=== PATIENT | male | born 1945 | race Caucasian/White ===

== ENCOUNTER 2021-04-09 06:51 | Observation (INO) ==
--- NOTE | 2021-04-09 08:29 | History & Physical Bridge Note ---
Date of Service April 09, 2021 History & Physical Bridge Note I have examined the patient, reviewed the History & Physical and in the interval since the performance of the History & Physical I have noted the following changes of clinical significance: no changes noted
--- NOTE | 2021-04-09 08:30 | Pre Anesthesia Assessment ---
Date of Service April 09, 2021 Pre Sedation Assessment Vital Signs Temp Pulse Resp BP Pulse Ox 04/09/21 05:08 37.2 C 52 L 18 163/75 H 97 Cardiovascular RRR, no murmur, no edema Respiratory normal respiratory effort, lungs clear to auscultation Pre-Sedation Airway Assessment Smoking Status: Former smoker Hx Sleep Apnea: Yes Short, Thick Neck: Yes Thyromental Distance: > or= 3.5 Finger Breadths Oral Cavity: + WNL Mallampati Class: II ASA: ASA3 NPO Status Date of Last Intake of Fluids: 04/09/21 Date of Last Intake of Solid Food: 04/08/21 Procedure Planning Contraindications for Sedation: none Current Medications Reviewed: No Notes The planned sedation has been discussed with the patient. Informed Consent was obtained. I have identified the patient, determined the appropriateness of sedation and have assessed the patient immediately prior to the procedure. All medicine(s) and interventions are by my order.
[2021-04-09] MEDS ORDERED: fentaNYL citrate 100 MCG/2 ML VIAL ONE (08:31)
[2021-04-09] MEDS ORDERED: niCARdipine HCL INJ 2.5 MG/ML 10 ML AMP ONE (08:31)
[2021-04-09] MEDS ORDERED: HEPARIN (PORCINE) 1000 UNIT/ML 10 ML (CATH LAB USE ONLY) ONE ×2 (08:31→10:27)
[2021-04-09] MEDS ORDERED: MIDAZOLAM HCL 1 MG/ML 2ML VIAL ONE ×2 (08:32→10:34)
[2021-04-09] MEDS ORDERED: NITROGLYCERIN/D5W 100MCG/ML 20ML SYR ONE (08:32)
[2021-04-09] MEDS ORDERED: ADENOSINE IV SOLN 3 MG/ML 20 ML VIAL IV ONE (09:56)
--- NOTE | 2021-04-09 09:57 | Post Anesthesia Assessment ---
Date of Service April 09, 2021 Post Sedation Assessment Vital Signs Temp Pulse Resp BP Pulse Ox 04/09/21 05:08 37.2 C 52 L 18 163/75 H 97 Recovery Score Activity: Moves 4 extremities Respiration: Deep Breath/Cough Circulation: +/-20% PreAnes Value Consciousness: Arouseable (by name) Oxygen Saturation: > 92% On Room Air Discharge Sedation Level of Care: Phase I Post Sedation Plan On clinical assessment, the patient appears to have tolerated the sedation without complications. Patient is recovering as anticipated. Patient will continue to be monitored by nursing and may be discharged when sedation discharge criteria are met per below protocol. Upon Completions of procedure up to 15 minutes continue every 5 minute vital signs and the P.A.R. score; then discharge to a Phase I or Fast Track to Phase II per the following guidelines: * Discharge Patient to appropriate Phase II area if PAR is 8 or greater or return to pre- procedure baseline. The post - procedure orders will be as directed. * If PAR score is less than 8 or not return to pre-procedure baseline then patient will follow Phase I monitoring till PAR is reached for Phase II. The Phase I may be done in procedure room or may call to secure a Phase I area. * If naloxone or flumazenil are used for reversal, hold in Phase I for continued monitoring from when last reversal dose was given for a minimum of 60 minutes or longer pending the nurse and/or physician discretion of patient condition before discharge to Phase II. Please call the Sedation Physician to re-evaluate and complete post-note for discharge to Phase II area. Do NOT discharge from procedure sedation or Phase 1 until post- sedation evaluation note is complete by procedure /sedation MD Sedation Discharge Instructions to be given to the patient at discharge to home.
--- NOTE | 2021-04-09 10:08 | Cardiac Catheterization ---
Cardiac Cath Procedure Full Procedure Date April 09, 2021 Pre-Procedure Diagnosis Pre-Procedure Diagnosis: Angina, Positive Stress Test and CAD AUC Score AUC Score: 7 Post-Procedure Diagnosis Post-Procedure Diagnosis: Severe CAD and Normal Intracardiac Pressures Procedure(s) Performed Procedure(s) Performed: Coronary Angiography and Left Heart Cath Grease Cup Filler Germán Ferrari DO Solar Sales Manager(s) Patricio RTR Estimated Blood Loss Estimated Blood Loss: 10cc Medication(s) Medication(s): Fentanyl, Heparin, Lidocaine 1%, Nicardipine, Nitroglycerin and Versed Summary of Findings Right dominant coronary anatomy. Short left main giving rise to left anterior descending artery and circumflex. The LAD demonstrates mild calcification proximally with a 40% stenosis followed by a 70% calcified stenosis in the early mid segment. The mid to distal LAD demonstrates diffuse luminal irregularities with stenosis ranging from 10-20%. The first diagonal branch vessel is large with a 40% proximal stenosis followed by diffuse luminal irregularities with stenosis ranging up to 30%. The second diagonal branch vessel is of moderate caliber with severe, 80% stenosis proximally. There is a third diagonal branch vessel that fills late via left to left collaterals. The left circumflex is a large nondominant vessel giving rise to obtuse marginal and posterior lateral branches. There is a 20% ostial left circumflex stenosis. The remainder of the vessel demonstrates diffuse luminal irregularities with stenosis ranging from 10-20%. The first obtuse marginal branch vessel is diminutive, 1 mm. The second obtuse marginal branch vessel is of moderate caliber and is free of significant obstructive disease. There are mild luminal irregularities of the mid segment with stenosis ranging up to 10%. Posterior lateral branch vessel is small and free of significant obstructive disease. The right coronary artery is a large dominant vessel giving rise to posterior descending artery and 2 large posterior lateral branch vessels. There is a long area of stenting extending from the proximal to mid segment. There is a 30% proximal stenosis prior to the stent. There is mild in-stent restenosis, 20%. Distal vessel demonstrates a 30% stenosis. The posterior descending artery is normal. The first posterior lateral branch vessel demonstrates mild luminal irregularities, 10%. The second posterior lateral branch vessel demonstrates mild luminal irregularities, 10%. Hemodynamics Rest Ao:: 130/72/106 Final Ao: 130/53/82 LV: 128/-1/8 Recommendations Recommendations: PCI without planned CABG Specimens Specimens: None Radiation Exposure (mGy) 1343 Contrast (mls) 80 Fluids (cc crystalloids) Fluids (cc crystalloids): 100 Nss Drains Drains: n/A Anesthesia Moderate sedation. Start 903. End 954. Sedation monitor: Damaris DIANA Procedural Complication(s) None Disposition minilab operator for PCI I attest to the content of the Intraoperative Record and any orders documented therein. Any exceptions are noted below. ACC Data: Director Enterprise Data Architecture Cardiac Status Clinical evaluation leading to the procedure CAD Presenation: Positive Stress Test and Unstable angina Anginal Classification: CCS II Heart Failure: No Cardiogenic Shock within 24 Hours: No Cardiac Arrest within 24 Hours: No Imaging Studies Past 6 Months: Yes Stress Studies Past 6 Months: Yes Stress Echocardiogram: Yes - Positive and Risk/Extent of Ischemia (High) Coronary Anatomy Left Main (% Stenosis): Normal LAD (% Stenosis): Proximal (40%), Mid (70%) and Distal (10-20% diffuse) D1 (% Stenosis): Proximal (40%) and Mid (10-30% diffuse) D2 (% Stenosis): Proximal (80%) D3 (% Stenosis): Proximal (occluded, fills via left to left collaterals) Circumflex (% Stenosis): Ostial (20%) and Mid (10-20% diffuse) OM1 (% Stenosis): Normal OM2 (% Stenosis): Mid (10% diffuse) L PL1 (% Stenosis): Normal RCA (% Stenosis): Proximal (Patent stent, 20% in-stent restenosis), Mid (Patent stent with 20% in-stent restenosis) and Distal (30%) R PDA (% Stenosis): Normal R PL1 (% Stenosis): Mid (10% diffuse) R PL2 (% Stenosis): Mid (10% diffuse) Diagnostic Physicians Name: Germán Ferrari DO Status: Elective Closure Device Percutaneous Entry Location: Radial Closure Device: Radial Band Recommendations: PCI without planned CABG Intraprocedure Events Significant Disection: No Perforation: No
[2021-04-09] MEDS ORDERED: CLOPIDOGREL BISULFATE 300 MG TAB ONE (11:15)
[2021-04-09] MEDS ORDERED: ACETAMINOPHEN 325 MG TAB PO PRN (11:34)
[2021-04-09] MEDS ORDERED: NITROGLYCERIN SL 0.4 MG/TAB TAB SL PRN (11:34)
[2021-04-09] MEDS ORDERED: ONDANSETRON INJ 2 MG/ML 2 ML VIAL IV PRN (11:34)
--- NOTE | 2021-04-09 11:34 | Post Anesthesia Assessment ---
Date of Service April 09, 2021 Post Sedation Assessment Vital Signs Temp Pulse Pulse Resp BP Pulse Ox 04/09/21 11:20 51 L 16 145/66 H 95 04/09/21 05:08 99.0 F 52 L 18 163/75 H 97 Recovery Score Activity: Moves 4 extremities Respiration: Deep Breath/Cough Circulation: +/-20% PreAnes Value Consciousness: Fully Awake Oxygen Saturation: > 92% On Room Air Post Anesthesia Score: 10 Discharge Sedation Level of Care: Fast Track Phase II Post Sedation Plan On clinical assessment, the patient appears to have tolerated the sedation without complications. Patient is recovering as anticipated. Patient will continue to be monitored by nursing and may be discharged when sedation discharge criteria are met per below protocol. Upon Completions of procedure up to 15 minutes continue every 5 minute vital signs and the P.A.R. score; then discharge to a Phase I or Fast Track to Phase II per the following guidelines: * Discharge Patient to appropriate Phase II area if PAR is 8 or greater or return to pre- procedure baseline. The post - procedure orders will be as directed. * If PAR score is less than 8 or not return to pre-procedure baseline then patient will follow Phase I monitoring till PAR is reached for Phase II. The Phase I may be done in procedure room or may call to secure a Phase I area. * If naloxone or flumazenil are used for reversal, hold in Phase I for continue d monitoring from when last reversal dose was given for a minimum of 60 minutes or longer pending the nurse and/or physician discretion of patient condition before discharge to Phase II. Please call the Sedation Physician to re-evaluate and complete post-note for discharge to Phase II area. Do NOT discharge from procedure sedation or Phase 1 until post- sedation evaluation note is complete by procedure /sedation MD Sedation Discharge Instructions to be given to the patient at discharge to home.
[2021-04-09] MEDS ORDERED: GLUCOSE 10 TABS/TUBE PO PRN (11:42)
[2021-04-09] MEDS ORDERED: GLUCAGON FOR INJ 1 MG VIAL SQ PRN (11:42)
[2021-04-09] MEDS ORDERED: CARBOHYDRATES FOR HYPOGLYCEMIA PO PRN (11:42)
[2021-04-09] MEDS ORDERED: GLUCOSE 40% GEL 15 GM TUBE PO PRN (11:42)
[2021-04-09] MEDS ORDERED: DEXTROSE 50% 50 ML SYRINGE IV PRN (11:42)
[2021-04-09] MEDS ORDERED: SODIUM CHLORIDE 0.9% 1000ML 1,000 ML IV SCH (11:45)
--- NOTE | 2021-04-09 11:59 | Consultation ---
Date of Consultation April 09, 2021 Assessment & Plan (1) CAD (coronary artery disease): Severe coronary artery disease Stable angina Had an Abnormal Outpatient Stress Test S/P cardiac catheterization with successful PCI Continue aspirin, clopidogrel, Lipitor, metoprolol Appreciate cardiology input Consider resting echo when appropriate Need to continue dual antiplatelet therapy for at least 6 months Needs cardiac rehab Needs follow-up with cardiology upon discharge Check lipid panel in AM DM Type II: well controlled Will hold oral diabetic meds Insulin therapy while hospitalized Hypothyroidism Continue levothyroxine Hypertension Continue amlodipine, lisinopril, metoprolol Dyslipidemia Continue statin 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 History of Present Illness Requesting Physician: Reason for Consultation: Post Cath medical management Attending Physician: Germán Ferrari, History of Present Illness Patient is a 76-year-old male with history of coronary artery disease, diabetes mellitus type 2, former tobacco use, dyslipidemia, hypertension, hypothyroidism and other medical problems was consulted for post cardiac catheterization medical management. Patient had an elective cardiac catheterization for an outpatient abnormal stress test as recommended by his primary clinical laboratory aide. On cardiac catheterization, patient was found to have 75% stenosis of proximal to mid LAD, 95% proximal small to medium caliber second diagonal and he had successful PCI of proximal to mid LAD with single drug-eluting stent. He also underwent angioplasty of proximal second diagonal with balloon. patient is doing well post operatively. Denies any chest pain, SOB, palpitations, orthopnea, PND, dizziness, cough, fever, chills, headache, nausea, vomiting, abdominal pain, diarrhea, dysuria, recent change in medications . Allergies Allergy/AdvReac Type Severity Reaction Status Date / Time No Known Allergies Allergy Verified 04/09/21 07:26 Home Medications Medication Instructions Recorded Confirmed Type allopurinol 200 mg PO DAILY 04/09/21 04/09/21 History amlodipine 10 mg PO DAILY 04/09/21 04/09/21 History ascorbic acid (vitamin C) [Vitamin 1,000 mg DAILY 04/09/21 04/09/21 History C] aspirin 325 mg PO DAILY 04/09/21 04/09/21 History atorvastatin 40 mg PO DAILY 04/09/21 04/09/21 History cyclobenzaprine [Flexeril] 10 mg PO TID PRN 04/09/21 04/09/21 History fluticasone propionate [Flonase] 2 spray INTRANASAL DAILY 04/09/21 04/09/21 History ibuprofen 200 mg PO Q4 PRN 04/09/21 04/09/21 History indapamide 1.25 mg PO QAM 04/09/21 04/09/21 History levothyroxine 175 mcg PO DAILY 04/09/21 04/09/21 History lisinopril 40 mg PO DAILY 04/09/21 04/09/21 History metformin 850 mg PO BID 04/09/21 04/09/21 History metoprolol succinate 25 mg PO DAILY 04/09/21 04/09/21 History multivitamin [Multi-Vitamin] 1 tab PO DAILY 04/09/21 04/09/21 History nitroglycerin See Rx Instructions .ROUTE 04/09/21 04/09/21 History .COMPLEX PRN Patient History Medical History DM II (diabetes mellitus, type II), controlled HTN (hypertension) with goal to be determined Hypothyroidism Family History Father Heart disease Mother Alzheimer disease Social History Smoking Status: Former smoker Do You Dip or Chew Tobacco: No; Hx Alcohol Use: Yes Alcohol type: hard liquor Hx Substance Use: No Preferred Language: Thai Communication Ability: Effective Bolt Sawyer Required: No Beliefs That Will Affect Care: None Current Living Situation: Spouse Feels Safe at Home: Yes Assistive Devices: None Review of Systems Review of Systems: All systems reviewed & are unremarkable except as noted in HPI & below Physical Exam Physical Exam: Physical Exam: Vitals signs as noted above General Appearance:Moderately built and nourished, no apparent distress Head: normocephalic, Atraumatic Eyes: normal inspection, EOMI, PERRL Neck: supple, Trachea midline Respiratory/Chest: Normal breath sounds, CTA, No accessory muscle use Cardiovascular: S1, S2, No murmur Abdomen/GI:Soft, Non tender, Bowel sounds present Extremities/Musculoskeletal:normal inspection, Trace edema Neurologic/Psych:AAOX3, grossly no focal neurological deficits Skin: normal color, warm Results & Data ([facility]) Vital Signs (Past 12 Hours) Vital Signs Temp Pulse Pulse Resp BP Pulse Ox 04/09/21 11:48 36.4 C L 54 L 20 156/64 H 93 04/09/21 11:35 56 L 16 141/62 H 95 04/09/21 11:20 51 L 16 145/66 H 95 04/09/21 05:08 37.2 C 52 L 18 163/75 H 97 Diagnostic Findings Cardiac Cath: Summary: 1. Severe single vessel coronary artery disease -75% (by IVUS) proximal to mid LAD (FFR 0.77). 95+% proximal small to medium caliber second diagonal 2. Successful PCI of proximal to mid LAD with single drug-eluting stent (3.0 x 33 mm Xience; postdilated with 3.5 NC). 3. Angioplasty of proximal second diagonal with 2.0 balloon Recommendations: To PCU for continued monitoring Loaded with clopidogrel 600 mg in Deputy Director Of Finance Continue dual-antiplatelet therapy for at least 6 months Consult cardiac Rehab
--- NOTE | 2021-04-09 12:07 | Cardiac Catheterization ---
[facility] Data: Dietitian Cardiac Status Clinical evaluation leading to the procedure CAD Presenation: Positive Stress Test Anginal Classification: CCS III Heart Failure: No Cardiogenic Shock within 24 Hours: No Cardiac Arrest within 24 Hours: No Imaging Studies Past 6 Months: Yes Stress Studies Past 6 Months: Yes Stress Echocardiogram: Yes - Positive and Risk/Extent of Ischemia (Intermediate) Diagnostic Physicians Name: Charly Donaldson MD Status: Elective Closure Device Percutaneous Entry Location: Radial Closure Device: Radial Band Recommendations: PCI without planned CABG PCI Indication: + Stress Test and Stable Angina Lesion Segment Name: proximal LAD Culprit Artery: Yes Stenosis Prior to Rx (%): 75 Chronic Total Occlusion: No IVUS: No FFR: No Previously Treated Lesion: No Lesion Complexity: High/C Lesion Length (mm): 25 Thrombus Present: No Bifurcation Lesion: Yes Guidewire Across Lesion: Stenosis Post-Procedure (%): 0 Post-Procedure SHIRA Flow: 3 Devices(s) Deployed: Yes Yes Intraprocedure Events Significant Disection: No Perforation: No Cardiac Cath Procedure Full Procedure Date April 09, 2021 Pre-Procedure Diagnosis Pre-Procedure Diagnosis: Angina, Positive Stress Test and CAD AUC Score AUC Score: 7 Post-Procedure Diagnosis Post-Procedure Diagnosis: Severe CAD and Successful PCI Procedure(s) Performed Procedure(s) Performed: Coronary Angiography, PTCA, Drug Eluting Stent, IVUS and Fractional Flow Huntley Hand Trimmer Charly Donaldson MD Information Technology Auditor(s) Patricio RTR Estimated Blood Loss Estimated Blood Loss: 20 Medication(s) Medication(s): Clopidogrel, Fentanyl, Heparin, Lidocaine 1%, Nicardipine, Nitroglycerin and Versed Summary of Findings Indication: Angina, abnormal stress test Access: 6 Fr right radial artery Catheters: EBU 3.5 guide Findings: For full details of patient's coronary angiography please see cath report dictated by Dr. Ferrari. Briefly, patient found to have intermediate proximal LAD disease as well as branch vessel disease involving D2. Decision to proceed with PCI. -- PCI -- Antithrombotic therapy: Heparin, clopidogrel Procedure: Left main cannulated with EBU 3.5 guide Crane Operator Cab 50 wire passed across lesion into distal LAD ACIST FFR catheter placed across proximal LAD lesion FFR 0.77 Decision to proceed with PCI of LAD Blanca IVUS catheter placed into mid LAD Pullback revealed severe diffuse disease from mid to proximal segment, moderate circumferential calcium proximally (MLA 3.3 mm, calculated stenosis 75%) Whisper wire placed into D2 Proximal D2 dilated with 2.0 balloon Proximal to mid LAD dilated with 2.5 balloon Dilated LAD lesion stented with 3.0 x 33 mm Xience drug-eluting stent Stent post-dilated with 3.5 noncompliant balloon IC vasodilators administered for spasm Repeat IVUS revealed well apposed, well-expanded stent with no apparent edge complications Post procedure SHIRA 3 flow, stent well expanded with minimal residual stenosis. SHIRA-3 flow and involved branches. Arterial Closure: TR band Summary: 1. Severe single vessel coronary artery disease -75% (by IVUS) proximal to mid LAD (FFR 0.77). 95+% proximal small to medium caliber second diagonal 2. Successful PCI of proximal to mid LAD with single drug-eluting stent (3.0 x 33 mm Xience; postdilated with 3.5 NC). 3. Angioplasty of proximal second diagonal with 2.0 balloon Recommendations: To PCU for continued monitoring Loaded with clopidogrel 600 mg in Dietitian Continue dual-antiplatelet therapy for at least 6 months Consult cardiac Rehab Hemodynamics Rest Ao:: 134/51/83 Final Ao: 108/43/69 LV: 128/8 Recommendations Recommendations: PCI without planned CABG Specimens Specimens: None Radiation Exposure (mGy) 4770 Contrast (mls) 220 Drains Drains: None Anesthesia Moderate sedation. Start 1000. End 1112. Sedation monitor: Damaris DIANA Procedural Complication(s) None Disposition PCU I attest to the content of the Intraoperative Record and any orders documented therein. Any exceptions are noted below. [facility] Card Cath Procedure Codes Cardiac Catheterization Procedure 1: Cardiovascular Cath Procedures: 69425 (Doppler) Pressure Wire Therapeutic Services & Ancillary Proc Procedure 1: Cardiovascular Tx and Anc Procedures: 80314 IV Ultrasound (Coronary or Graft) Moderate Sedation Procedure 1: Sedation/Anesthesia: 44663 Mod Sedation by the same physician; Ea [id number] Minutes Angioplasty Procedure 1: Cardiovascular Angioplasty Procedures: 28115 PTCA; ea addl branch of a major cor art RC LC LD Stenting Procedure 1: Cardiovascular Stent Procedures: 34131 Perc transcatheter placement of intracoronary stent(s), with ang PG Care Time/CCT Total # of Minutes Spent Total Time Spent with Patient: Total time spent is greater than 50% in coordination of care (as documented) at patient's floor/unit and/or counseling patient:
[2021-04-09] MEDS ORDERED: CYCLOBENZAPRINE HCL 10 MG TAB PO PRN (12:32)
--- NOTE | 2021-04-09 13:41 | Electrocardiogram Report ---
Test Reason : Blood Pressure : / mmHG Vent. Rate : 046 BPM Atrial Rate : 046 BPM P-R Int : 208 ms QRS Dur : 100 ms QT Int : 446 ms P-R-T Axes : 038 005 120 degrees QTc Int : 390 ms Sinus bradycardia Left ventricular hypertrophy with repolarization abnormality Abnormal ECG When compared with ECG of 04-MAY-1999 10:58, T wave inversion no longer evident in Inferior leads T wave inversion now evident in Lateral leads Confirmed by Anthony Wilson ([id number]) on 04/09/2021 1:41:01 PM Referred By: Germán Ferrari Confirmed By:Anthony Wilson
--- NOTE | 2021-04-09 15:28 | Electrocardiogram Report ---
Test Reason : Blood Pressure : / mmHG Vent. Rate : 050 BPM Atrial Rate : 050 BPM P-R Int : 202 ms QRS Dur : 094 ms QT Int : 432 ms P-R-T Axes : 045 026 092 degrees QTc Int : 393 ms Sinus bradycardia Nonspecific T wave abnormality Abnormal ECG When compared with ECG of 09-APR-2021 11:25, No significant change was found Confirmed by Anthony Wilson ([id number]) on 04/09/2021 3:28:45 PM Referred By: Germán Ferrari Confirmed By:Anthony Wilson
[2021-04-09] MEDS: INSULIN ASPART 100 UNITS/ML 3 ML PEN SC SCH ×2 (16:40→21:31)
--- NOTE | 2021-04-09 21:23 | XRay Report ---
XR chest 2V PA/lateral CLINICAL HISTORY: Hazy opacity overlying the right lung base and ARABELLA COMPARISON STUDY: No previous studies for comparison. FINDINGS: No pneumothorax. Minimal blunting of posterior left costophrenic angle could represent trace left pleural effusion. Mild atelectasis is seen at the left base. Cardiomediastinal silhouette is within normal limits in size. No significant pulmonary vascular congestion.. Aorta is calcified Osseous structures: Degenerative changes of the spine. IMPRESSION: 1. Minimal atelectasis at the left base and trace left pleural effusion. ACT 112: Negative or not required by law. The above report was generated using voice recognition software. It may contain grammatical, syntax o r spelling errors. Electronically signed by: Elizabeth Rebolledo DO 04/09/2021 9:22 PM
[2021-04-10 03:47] VITALS: TEMP 97.7; O2SAT 95
[2021-04-10 06:09] LABS: Basophils # (auto) 0.02 K/uL (0-0.2); Basophils % (auto) 0.4 %; Eosinophils # (auto) 0.09 K/uL (0-0.5); Eosinophils % (auto) 1.8 %; Hematocrit (blood only) 42.2 % (42-52); Hemoglobin 13.7 g/dL (14.0-18.0); Immature Granulocytes # (auto) 0.01 K/uL (0.00-0.02); Immature Granulocytes % (auto) 0.2 %; Lymphocytes # (auto) 1.06 K/uL (1.2-3.4); Lymphocytes % (auto) 20.7 %; Mean Corpuscular Hgb Conc 32.5 g/dL (32-36); Mean Corpuscular Volume 98.6 fL (80-100); Monocytes # (auto) 0.53 K/uL (0.11-0.59); Monocytes % (auto) 10.4 %; Neutrophils % (auto) 66.5 %; Platelet Count 211 K/uL (130-400); RDW Coefficient of Variation 13.8 % (11.5-14.5); RDW Standard Deviation 49.5 fL (36.4-46.3); Red Blood Count 4.28 M/uL (4.7-6.1); White Blood Count 5.11 K/uL (4.8-10.8)
[2021-04-10] MEDS ORDERED: LEVOTHYROXINE SODIUM 175 MCG TABLET PO SCH (06:30)
[2021-04-10 06:34] LABS: Estimated Average Glucose 123 mg/dl; Hemoglobin A1C 5.9 % (4.5-5.6)
[2021-04-10 06:40] LABS: Calcium 8.8 mg/dl (8.5-10.1); Creatinine Clr Calc Pharmacy 64.1 ml/min; Est GFR (African American) 72.8 ml/min; Est GFR (Non-African American) 62.8 ml/min; Magnesium 2.3 mg/dl (1.8-2.4); Potassium 4.1 mmol/L (3.5-5.1)
[2021-04-10 07:07] VITALS: BP 161/76
[2021-04-10] MEDS: INSULIN ASPART 100 UNITS/ML 3 ML PEN SC SCH (07:49)
--- NOTE | 2021-04-10 07:52 | Discharge Summary ---
Date of Service April 10, 2021 Admission HPI Per Admitting Provider 76-year-old male with history of coronary artery disease, diabetes mellitus type 2, former tobacco use, dyslipidemia, hypertension, hypothyroidism and other medical problems was consulted for post cardiac catheterization medical management. Patient had an elective cardiac catheterization for an outpatient abnormal stress test as recommended by his primary enterprise applications manager. On cardiac catheterization, patient was found to have 75% stenosis of proximal to mid LAD, 95% proximal small to medium caliber second diagonal and he had successful PCI of proximal to mid LAD with single drug-eluting stent. He also underwent a ngioplasty of proximal second diagonal with balloon. patient is doing well post operatively. Denies any chest pain, SOB, palpitations, orthopnea, PND, dizziness, cough, fever, chills, headache, nausea, vomiting, abdominal pain, diarrhea, dysuria, recent change in medications . Admission Exam Per Admitting Provider Physical Exam: Vitals signs as noted above General Appearance:Moderately built and nourished, no apparent distress Head: normocephalic, Atraumatic Eyes: normal inspection, EOMI, PERRL Neck: supple, Trachea midline Respiratory/Chest: Normal breath sounds, CTA, No accessory muscle use Cardiovascular: S1, S2, No murmur Abdomen/GI:Soft, Non tender, Bowel sounds present Extremities/Musculoskeletal:normal inspection, Trace edema Neurologic/Psych:AAOX3, grossly no focal neurological deficits Skin: normal color, warm Principal Diagnosis CAD (coronary artery disease): DM Type II: Hypothyroidism Hypertension Dyslipidemia Alcohol use Discharge Exam ROS-No Headache, No Visual Changes, No Nausea, No Vomiting, No Fever, No Chills, No Neck Pain or Stiffness, No Chest Pain, No Palpitations, No SOB, No VARGAS, No Cough, No Sputum, No Wheezing, No Abdominal Pain, No Diarrhea, No Hematemesis, No Hemoptysis, No Unexpected Weight Loss, No Flank pain, No Melena, No Hematochezia, No Frequency, No Urgency, No Burning, No Hematuria, No Rashes, No Diaphoresis. Appetite is Normal Physical Exam Gen-AAO x 3, NAD, Afebrile Head-NCAT, EOMI, PERRLA, Anicteric Sclera, No Posterior Pharyngeal Erythema Neck-Supple, No JVD, No Thyromegaly, No Masses, No LAD, No Bruits Lungs-Clear to Auscultation Bilaterally, No Rales, No Rhonchi, No Wheezing, No Crepitus Chest-No S4, +S1, +S2, No S3, No Murmurs, No Rubs, No Gallops, No Ectopy Abdomen-Soft, Bowel Sounds Present, Non Tender, Non Distended, No Hepatomegaly, No Splenomegaly, No Palpable Masses, No Rebound, No Rigidity, No Guarding Musculoskeletal-Full Range of Motion Bilaterally, No CVAT Extremities-No Cyanosis, No Clubbing, No Edema Nuero-Cranial Nerves II-XII grossly intact, Motor WNL, DTRs WNL, Strength WNL, Non Focal Psych-Normal Mood Discharge Data Allergies Allergy/AdvReac Type Severity Reaction Status Date / Time No Known Allergies Allergy Verified 04/09/21 07:26 Consultations 04/09/21 11:45 Consult Hospitalist Routine Procedures Performed Operation Date: 04/09/21 08:00 Actual Procedures p Cath, Left with Cors and Vent - Germán Ferrari DO s Cineradiography w/Routine Exam - DO alex Bach Fraction Flow [place] SGL Ves - Humphrey Donaldson MD s IVUS Coronary Single Vessel - Humphrey Donaldson MD s Drug Eluting Stent SGl Vessel - Humphrey Donaldson MD s Ultrasound Vascular Access - Germán Ferrari DO Ordered Studies 04/09/21 06:42 CL Cath Imgs for PACS use only Routine 04/09/21 11:00 CL IVUS Coronary Single Vessel Routine Current Diagnoses Atherosclerotic heart disease of [place] coronary artery without angina pectoris (04/09/21) Allergies No Known Allergies Allergy (Verified 04/09/21 07:26) Height/Weight/Isolation Height 5 ft 10 in Weight 94.2 kg Chemistry 04/10/21 05:39 Sodium 138 Potassium 4.1 Chloride 107 Carbon Dioxide 28 Anion Gap 3.0 BUN 17 Creatinine 1.13 Glucose 115 H Hospital Course (1) CAD (coronary artery disease): Severe coronary artery disease Stable angina Had an Abnormal Outpatient Stress Test S/P cardiac catheterization with successful PCI Continue aspirin, clopidogrel, Lipitor, metoprolol Need to continue dual antiplatelet therapy for at least 6 months Needs cardiac rehab Needs follow-up with cardiology upon discharge DM Type II: well controlled Hypothyroidism Continue levothyroxine Hypertension Continue amlodipine, lisinopril, metoprolol Dyslipidemia Continue statin Alcohol use Counseled to quit DVT Px: SCDs for now Code Status Full Code Disposition Discharge home today after seen by Cardio Total Time Total Time Spent Total Time Spent (In Minutes): 45 min Total Time Includes: Examination of the Patient, Discharge Planning, Medication Reconciliation and Communication With Other Providers Discharge Plan Discharge Items Patient Disposition: Home - Self-Care Reason For Visit: Positive Exercise Stress Test Discharge Diagnosis: CAD (coronary artery disease): DM Type II: Hypothyroidism Hypertension Dyslipidemia Alcohol use Condition on Discharge: Good Activity: Resume your previous activity Lifting: Gradually increase as tolerated Bathing: Keep incision dry Sexual Activity: When tolerated Exercise/Sports: Gradually increase as tolerated Driving/Machine Use: Resume 3 days after discharge Weightbearing: Full weightbearing Non-emergency contact: Primary Care Provider and Senior Consumer Insights Consultant Call non-emergency contact if: you have any medication questions Follow-up/Referrals: Germán Ferrari DO [Senior Consumer Insights Consultant] - Aryan Dowell MD [Primary Care Provider] - Diet: Carb Consistent or DM2 and Heart Healthy Addtl Attending Provider Instructions: Need cardiac rehab Pending Studies at Discharge: No Stand-Alone Forms: My [facility] rubberit, Smoking Cessation Medications and DC Order Prescriptions: New clopidogrel 75 mg Tablet 75 mg PO QAM Qty: 30 RF: 0 nitroglycerin [Nitrostat] 0.4 mg Tablet, Sublingual 0.4 mg sublingual PRN PRN (Reason: chest pain) Qty: 30 RF: 0 acetaminophen 325 mg Tablet 650 mg PO Q4H PRN (Reason: fever or pain) Qty: 90 RF: 0 aspirin 81 mg Tablet,Delayed Release (Dr/Ec) 81 mg PO QAM Qty: 30 RF: 0 Continued multivitamin [Multi-Vitamin] Tablet 1 tab PO DAILY RF: 0 cyclobenzaprine [Flexeril] 10 mg Tablet 10 mg PO TID PRN (Reason: Muscle Spasm) RF: 0 atorvastatin 40 mg Tablet 40 mg PO DAILY RF: 0 allopurinol 100 mg Tablet 200 mg PO DAILY RF: 0 amlodipine 10 mg Tablet 10 mg PO DAILY RF: 0 indapamide 1.25 mg Tablet 1.25 mg PO QAM RF: 0 ibuprofen 200 mg Tablet 200 mg PO Q4 PRN (Reason: Pain) RF: 0 nitroglycerin 0.4 mg Tablet, Sublingual See Rx Instructions .ROUTE .COMPLEX PRN (Reason: Chest Pain) RF: 0 metoprolol succinate 25 mg Tablet Extended Release 24 Hr 25 mg PO DAILY RF: 0 Vitamin C 1,000 mg Tablet,Chewable 1,000 mg DAILY RF: 0 lisinopril 40 mg Tablet 40 mg PO DAILY RF: 0 fluticasone propionate [Flonase] 50 mcg/actuation [place],Suspension 2 spray INTRANASAL DAILY RF: 0 levothyroxine 175 mcg Capsule 175 mcg PO DAILY RF: 0 metformin 850 mg Tablet 850 mg PO BID Qty: 0 RF: 0 Discontinued aspirin 325 mg Tablet 325 mg PO DAILY RF: 0 Discharge Orders: Discharge Order (Routine); Ordered 04/10/21 Ordered By: Ashwin Ogden Admission Data Admit Date/Time: 04/09/21 10:40 Attending Provider: Ashwin Ogden Admit Provider: Germán Ferrari Primary Care Provider: Aryan Dowell Other Providers: Krystina Alegria
[2021-04-10] MEDS ORDERED: FLUTICASONE PROPIONATE NA SPR 16 GM BTL SCH (09:00)
[2021-04-10] MEDS ORDERED: METOPROLOL SUCC 25MG EXT REL TAB PO SCH (09:00)
[2021-04-10] MEDS ORDERED: ATORVASTATIN 40 MG TAB PO SCH (09:00)
[2021-04-10] MEDS ORDERED: CLOPIDOGREL BISULFATE 75 MG TAB PO SCH (09:00)
[2021-04-10] MEDS ORDERED: INDAPAMIDE 1.25 MG TAB PO SCH (09:00)
[2021-04-10] MEDS ORDERED: amLODIPine BESYLATE 5 MG TAB PO SCH (09:00)
[2021-04-10] MEDS ORDERED: lisinopril 40 MG TAB PO SCH (09:00)
[2021-04-10] MEDS ORDERED: MULTIVITAMIN TAB PO SCH (09:00)
[2021-04-10] MEDS ORDERED: ASPIRIN 81 MG ECTAB PO SCH (09:00)
[2021-04-10 09:20] VITALS: PULSE 51
--- NOTE | 2021-04-10 09:50 | Cardiology Progress Note ---
Date of Service April 10, 2021 Assessment & Plan (1) CAD (coronary artery disease): Patient presented with increasing angina pectoris and underwent diagnostic cardiac catheterization. Study demonstrated patent stents in the right coronary distribution. Significant disease as below noted in the left anterior descending with subsequent coronary invention 1. Severe single vessel coronary artery disease -75% (by IVUS) proximal to mid LAD (FFR 0.77). 95+% proximal small to medium caliber second diagonal 2. Successful PCI of proximal to mid LAD with single drug-eluting stent (3.0 x 33 mm Xience; postdilated with 3.5 NC). 3. Angioplasty of proximal second diagonal with 2.0 balloon Patient recovering nicely post procedure. Plan discharge today with dual antiplatelet minimum 6 months. Patient is scheduled to see [facility] cardiology on 04/23/2021 (2) HTN (hypertension) with goal to be determined: Continue prehospital medication (3) DM II (diabetes mellitus, type II), controlled: Resume Metformin on 04/12/2021 Admission and Anticipated Discharge Date Admission Date: April 09, 2021 Subjective Patient was seen and examined, chart, medications, telemetry reviewed. No difficulties overnight. No arrhythmias on telemetry No bleeding issues right radial access site healing well Review of Systems Review of Systems: All systems reviewed & are unremarkable except as noted in HPI & below Physical Exam Constitutional: WD/WN, vitals as above Eyes: PERRL, conjunctivae normal, anicteric sclerae ENMT: external ear and nose normal, oropharynx normal Neck: trachea midline, no thyromegaly Respiratory: normal respiratory effort, lungs clear to auscultation Cardiovascular: Rate/Rhythm: regular rate and regular rhythm Heart Sounds: normal S1 and normal S2; no gallop and no murmur Palpation: normal PMI Vessels: normal carotid upstroke and radial pulses present; no JVD and no carotid bruit Extremities: no edema Gastrointestinal (Abdomen): normal bowel sounds, soft, nontender, no hepatosplenomegaly Musculoskeletal: no cyanosis or clubbing, extremities motor strength 5/5 Skin: no rashes, warm and dry Neurologic: PERRL, EOMI, accommodation nl, no face palsy, no dysarthria Psychiatric: A+Ox3, euthymic affect Results & Data ([facility]) Vital Signs (Past 12 Hours) Vital Signs Temp Pulse Pulse Pulse Resp BP Pulse Ox 04/10/21 09:16 36.5 C 54 L 51 L 17 161/76 H 95 04/10/21 07:43 52 L 04/10/21 07:06 36.5 C 51 L 17 161/76 H 95 04/10/21 03:46 36.5 C 55 L 18 166/77 H 95 04/10/21 00:05 53 L 04/09/21 22:56 36.6 C 54 L 19 154/74 H 93 Laboratory Results Laboratory Results - last 24 hr 04/09/21 04/09/21 04/09/21 10:24 10:48 11:08 WBC RBC Hgb Hct MCV MCH MCHC RDW Std Deviation RDW Coeff of Billie Plt Count MPV Immature Gran % (Auto) Neut % (Auto) Lymph % (Auto) Mobile % (Auto) Eos % (Auto) Baso % (Auto) Neut # (Auto) Lymph # (Auto) Mobile # (Auto) Eos # (Auto) Baso # (Auto) Immature Gran # (Auto) Activ Coag Time Kaolin 197 H 241 H 246 H Sodium Potassium Chloride Carbon Dioxide Anion Gap BUN Creatinine Est Cr Clr Drug Dosing Est GFR ( Amer) Est GFR (Non-Af Amer) BUN/Creatinine Ratio Glucose POC Glucose Estimat Average Glucose Hemoglobin A1c Calcium Magnesium Triglycerides Cholesterol LDL Cholesterol, Calc VLDL Cholesterol, Calc HDL Cholesterol Cholesterol/HDL Ratio 04/09/21 04/09/21 04/09/21 12:11 16:05 20:06 WBC RBC Hgb Hct MCV MCH MCHC RDW Std Deviation RDW Coeff of Billie Plt Count MPV Immature Gran % (Auto) Neut % (Auto) Lymph % (Auto) [place] % (Auto) Eos % (Auto) Baso % (Auto) Neut # (Auto) Lymph # (Auto) Mobile # (Auto) Eos # (Auto) Baso # (Auto) Immature Gran # (Auto) Activ Coag Time Kaolin Sodium Potassium Chloride Carbon Dioxide Anion Gap BUN Creatinine Est Cr Clr Drug Dosing Est GFR ( Amer) Est GFR (Non-Af Amer) BUN/Creatinine Ratio Glucose POC Glucose 107 H 106 H 134 H Estimat Average Glucose Hemoglobin A1c Calcium Magnesium Triglycerides Cholesterol LDL Cholesterol, Calc VLDL Cholesterol, Calc HDL Cholesterol Cholesterol/HDL Ratio 04/10/21 04/10/21 04/10/21 05:39 05:39 05:39 WBC 5.11 RBC 4.28 L Hgb 13.7 L Hct 42.2 MCV 98.6 MCH 32.0 MCHC 32.5 RDW Std Deviation 49.5 H RDW Coeff of Billie 13.8 Plt Count 211 MPV 11.0 H Immature Gran % (Auto) 0.2 Neut % (Auto) 66.5 Lymph % (Auto) 20.7 Mobile % (Auto) 10.4 Eos % (Auto) 1.8 Baso % (Auto) 0.4 Neut # (Auto) 3.40 Lymph # (Auto) 1.06 L Mobile # (Auto) 0.53 Eos # (Auto) 0.09 Baso # (Auto) 0.02 Immature Gran # (Auto) 0.01 Activ Coag Time Kaolin Sodium 138 Potassium 4.1 Chloride 107 Carbon Dioxide 28 Anion Gap 3.0 BUN 17 Creatinine 1.13 Est Cr Clr Drug Dosing 64.1 Est GFR ( Amer) 72.8 Est GFR (Non-Af Amer) 62.8 BUN/Creatinine Ratio 15.0 Glucose 115 H POC Glucose Estimat Average Glucose 123 Hemoglobin A1c 5.9 H Calcium 8.8 Magnesium 2.3 Triglycerides 180 H Cholesterol 128 LDL Cholesterol, Calc 64 VLDL Cholesterol, Calc 36 HDL Cholesterol 28 Cholesterol/HDL Ratio 5 04/10/21 07:13 WBC RBC Hgb Hct MCV MCH MCHC RDW Std Deviation RDW Coeff of Billie Plt Count MPV Immature Gran % (Auto) Neut % (Auto) Lymph % (Auto) Mobile % (Auto) Eos % (Auto) Baso % (Auto) Neut # (Auto) Lymph # (Auto) Mobile # (Auto) Eos # (Auto) Baso # (Auto) Immature Gran # (Auto) Activ Coag Time Kaolin Sodium Potassium Chloride Carbon Dioxide Anion Gap BUN Creatinine Est Cr Clr Drug Dosing Est GFR ( Amer) Est GFR (Non-Af Amer) BUN/Creatinine Ratio Glucose POC Glucose 115 H Estimat Average Glucose Hemoglobin A1c Calcium Magnesium Triglycerides Cholesterol LDL Cholesterol, Calc VLDL Cholesterol, Calc HDL Cholesterol Cholesterol/HDL Ratio
== END 2021-04-10 10:40 | disposition home or self-care (01) ==
LOC: 2E 06:51 → CC 06:51 → SUATTDRO 10:40